=== PATIENT | male | born 1995 | race Caucasian/White ===

== ENCOUNTER 2023-09-25 01:38 | Emergency (ER) | payer SELFPAY ==
[2023-09-25] VITALS (7 sets, daily range): BP systolic 133–161; BP diastolic 84–91; PULSE 93–108; RESP 16–18; TEMP 36.1; O2SAT 96–100; BMI 51.7
[2023-09-25] MEDS: ONDANSETRON 4 MG/2 ML INJ IV (02:46)
[2023-09-25] MEDS: KETOROLAC 30 MG/ML VIAL 15 MG IV (02:46)
[2023-09-25 02:57] LABS: Add Manual Diff / Slide Review NO; Basophils Absolute Auto 0 /uL (0-100); Basophils Percent Auto 0.3 % (0-2); Eosinophils Absolute Auto 100 /uL (0-450); Eosinophils Percent Auto 1.1 % (2-4); Hematocrit 46.7 % (41-53); Hemoglobin 15.9 g/dL (13.5-17.5); Lymphocytes Absolute Auto 1800 /uL (1100-4500); Lymphocytes Percent Auto 14.2 % (25-40); Mean Corpuscular HGB Conc 34.1 % (30-36); Mean Corpuscular Hemoglobin 28.4 PG (26-34); Mean Corpuscular Volume 83.1 fL (80-100); Monocytes Absolute Auto 800 /uL (0-900); Monocytes Percent Auto 6.5 % (3-14); Neutrophils Absolute Auto 10100 /uL (1500-7000); Neutrophils Percent Auto 77.9 % (50-75); Platelet Count 284 X10^3/uL (150-400); Red Blood Cell Count 5.61 X10^6/uL (4.5-5.9); Red Cell Distribution Width 14.1 % (11.6-14.8)
[2023-09-25 03:06] LABS: Alanine Aminotransferase 79 IU/L (<50); Albumin 4.8 g/dL (3.5-5.0); Albumin Globulin Ratio 1.3 (1.0-2.8); Alkaline Phosphatase 63 U/L (38-126); Aspartate Aminotransferase 47 IU/L (17-59); BUN Creatinine Ratio 10.8 (6-22); Bilirubin Total 0.6 mg/dL (0.2-1.3); Blood Urea Nitrogen 13 mg/dL (9-20); Calcium 9.5 mg/dL (8.4-10.2); Carbon Dioxide 25 mmol/L (22-32); Chloride 106 mmol/L (98-107); Estimated Glomerular Filt Rate > 60 mL/min (>60); Globulin 3.6 g/dL (1.7-4.1); Glucose 120 mg/dL (70-100); HEMOLYSIS 18 (0-50); Lipase 153 U/L (23-300); Potassium 4.2 mmol/L (3.4-5.1); Sodium 138 mmol/L (137-145); Total Protein 8.4 g/dL (6.3-8.2)
[2023-09-25 03:43] LABS: Appearance Urine UA CLOUDY; Bilirubin Urine UA 1+ (NEGATIVE); Glucose Urine UA NEGATIVE (Negative); Ketones Urine UA TRACE (NEGATIVE); Leukocyte Esterase Urine UA NEGATIVE (NEGATIVE); Nitrite Urine UA NEGATIVE (Negative); Occult Blood Urine UA 3+ (Negative); Protein Urine UA 2+ (Negative); Specific Gravity Urine UA >=1.030 (1.000-1.035)
[2023-09-25 03:44] LABS: Color Urine UA Dark Yellow
[2023-09-25 03:46] LABS: Ictotest Urine Negative (Negative); Urine Volume 10mL (spun)
[2023-09-25 03:47] LABS: Bacteria Urine Moderate (10-30); RBC Urine >100/HPF (0-5/HPF); WBC Urine 1-5/HPF (0-5/HPF)
[2023-09-25 03:48] LABS: Mucus Urine 3+ (Negative); Squamous Epithelial Cell Urine 1-5 /HPF (0-5/HPF)
[2023-09-25 03:50] LABS: Culture Indicated Urine Cult Not Indicated
--- NOTE | 2023-09-25 03:55 | DI.CT.S_ITS ---
PROCEDURE: CT KIDNEY URETER BLADDER (KUB) INDICATIONS: possible kidney stone TECHNIQUE: Axial sections were acquired from the lung bases to the pubic symphysis. Coronal and sagittal reformats were performed. For radiation dose reduction, the following was used: automated exposure control, adjustment of mA and/or kV according to patient size. COMPARISON: None. FINDINGS: Image quality: Diagnostic. Lower Chest: No significant findings. URINARY: Right Kidney: No stones or hydronephrosis. Right Ureter: No hydroureter. Left Kidney/ureter: There is a 3 mm obstructing proximal left ureteral stone with associated upstream hydroureteronephrosis. Associated perinephric stranding. Remainder of the left ureter is normal in course and caliber. Bladder: Normal wall thickness. No stones. ABDOMEN: Liver: No contour-deforming solid mass. Hepatic steatosis. There is a 14 mm hyperdense focus within the anterior right hepatic lobe (33/series 2) which may represent focal fatty sparing versus possible indeterminate hepatic lesion. Gallbladder: No radiopaque gallstones or wall thickening. Biliary ducts: No biliary dilation. Pancreas: No ductal dilation. Spleen: Size is within normal limits. Adrenal Glands: No adrenal nodules. Stomach and Bowel: Normal colonic caliber, without significant wall thickening. Normal appendix. Peritoneum: No abnormal intraperitoneal fluid. No free air. Ventral Wall: There is a fat-containing umbilical hernia without acute inflammation. Abdominal Nodes: No enlarged retroperitoneal or mesenteric lymph nodes. Vessels: Aorta and inferior vena cava are normal in size. PELVIS: Pelvic Organs: Unremarkable. Pelvic Nodes: Unremarkable. Miscellaneous: No inguinal hernias are seen. Bones: Visualized osseous structures appear intact without acute fracture or focal destructive lesion. No acute compression fractures of the imaged spine. IMPRESSION: 3 mm obstructing proximal left ureteral stone with mild upstream hydroureteronephrosis and perinephric stranding. Recommend correlation for possible concurrent infectious uropathy. Moderate hepatic steatosis with a 14 mm density in the right hepatic lobe which may represent focal fatty sparing versus possible indeterminate hepatic lesion. Consider further characterization with multiphasic CT or MRI of the abdomen using liver mass protocol. Normal appendix. No significant discrepancy with the mold shifter radiology preliminary report. Dictated by: Laurent Gibson M.D. on 09/25/2023 at 7:10 Approved by: Laurent Gibson M.D. on 09/25/2023 at 7:20
--- NOTE | 2023-09-25 04:22 | ED_ITS ---
HPI - Abdominal Pain General Chief Complaint: Abdominal Pain Stated Complaint: abd pain, back pain Time Seen by Provider: 09/25/23 04:22 Source: patient Mode of arrival: Ambulatory History of Present Illness HPI narrative: 28-year-old male with history of left flank pain sudden onset 10:00 p.m., unrelenting, with associated nausea and emesis x3 episodes, nonbloody, no loose stool, injury or trauma neck activities. No anterior abdominal discomfort, no groin pain or testicular pain. No history of known kidney stones. No fevers or chills. No shortness of breath or chest pain. No rashes or skin changes. No frequency of urination, no painful urination, no blood or dark appearance to urination. No trauma injury new activities recalled. No fevers or chills. No weakness. MD complaint: flank pain Related Data Home Medications Medication Instructions Recorded Confirmed ACETAMINOPHEN (#TYLENOL) ##0 12/13/11 ibuprofen 600 mg tablet ##0 12/13/11 Previous Rx's Medication Instructions Recorded cefdinir 300 mg capsule 300 mg PO BID 10 days #20 caps 09/25/23 naproxen 500 mg tablet 500 mg PO BID 7 days #14 tabs 09/25/23 tamsulosin 0.4 mg capsule 0.8 mg (2 x 0.4 mg) PO DAILY 7 09/25/23 days #14 caps Allergies Allergy/AdvReac Type Severity Reaction Status Date / Time No Known Drug Allergies Allergy Verified 09/25/23 03:38 Exam Initial Vital Signs Initial Vital Signs: Vital Signs Temperature 97 F L 09/25/23 02:20 Pulse Rate 108 H 09/25/23 02:20 Respiratory Rate 18 09/25/23 02:20 Blood Pressure 161/84 H 09/25/23 02:20 Pulse Oximetry 100 09/25/23 02:20 Oxygen Delivery Method Room Air 09/25/23 02:20 Course Orders Ordered: Discontinued Medications Ceftriaxone Sodium 1,000 mg/ (Sodium Chloride) 100 mls @ 200 mls/hr IV NOW ONE Stop: 09/25/23 04:58 Last Infusion: 09/25/23 05:48 Dose: Infused Documented By: Admin: 09/25/23 05:12 Dose: 200 mls/hr Documented By: JOZEF Ketorolac Tromethamine (Ketorolac 30 Mg/Ml Vial) 15 mg IV NOW ONE Stop: 09/25/23 02:25 Last Admin: 09/25/23 02:46 Dose: 15 mg Documented By: KOURTNEY Ondansetron HCl (Ondansetron 4 Mg/2 Ml Inj) 4 mg IV NOW ONE Stop: 09/25/23 02:25 Last Admin: 09/25/23 02:46 Dose: 4 mg Documented By: KOURTNEY Tamsulosin HCl (Tamsulosin 0.4 Mg Capsule) 0.4 mg PO NOW ONE Stop: 09/25/23 04:48 Last Admin: 09/25/23 05:11 Dose: 0.4 mg Documented By: JOZEF Vital Signs Vital signs: Vital Signs - 8 hr 09/25/23 02:20 09/25/23 04:02 09/25/23 04:34 Temperature 97 F L Pulse Rate 108 H 95 H Respiratory Rate 18 Blood Pressure 161/84 H 138/88 Pulse Oximetry 100 96 Oxygen Delivery Method Room Air 09/25/23 05:00 09/25/23 05:30 Temperature Pulse Rate 94 H 98 H Respiratory Rate Blood Pressure Pulse Oximetry 96 100 Oxygen Delivery Method MDM - Abdominal Pain Lab Data Attestation: I reviewed the patient's lab results. 09/25/23 02:40 09/25/23 02:40 Labs: Lab Results 09/25/23 09/25/23 Range/Units 02:40 03:24 WBC 13.0 H (4.5-11.0) X10^3/uL RBC 5.61 (4.5-5.9) X10^6/uL Hgb 15.9 (13.5-17.5) g/dL Hct 46.7 (41-53) % MCV 83.1 (80-100) fL MCH 28.4 (26-34) PG MCHC 34.1 (30-36) % RDW 14.1 (11.6-14.8) % Plt Count 284 (150-400) X10^3/uL Neut % (Auto) 77.9 H (50-75) % Lymph % (Auto) 14.2 L (25-40) % [place] % (Auto) 6.5 (3-14) % Eos % (Auto) 1.1 L (2-4) % Baso % (Auto) 0.3 (0-2) % Neut # (Auto) 26626 H (2236-9238) /uL Lymph # (Auto) 1800 (4883-3301) /uL [place] # (Auto) 800 (0-900) /uL Eos # (Auto) 100 (0-450) /uL Baso # (Auto) 0 (0-100) /uL Sodium 138 (137-145) mmol/L Potassium 4.2 (3.4-5.1) mmol/L Chloride 106 (98-107) mmol/L Carbon Dioxide 25 (22-32) mmol/L BUN 13 (9-20) mg/dL Creatinine 1.20 (0.66-1.25) mg/dL Estimated GFR > 60 (>60) mL/min BUN/Creatinine Ratio 10.8 (6-22) Glucose 120 H (70-100) mg/dL Calcium 9.5 (8.4-10.2) mg/dL Total Bilirubin 0.6 (0.2-1.3) mg/dL AST 47 (17-59) IU/L ALT 79 H (<50) IU/L Alkaline Phosphatase 63 (38-126) U/L Total Protein 8.4 H (6.3-8.2) g/dL Albumin 4.8 (3.5-5.0) g/dL Globulin 3.6 (1.7-4.1) g/dL Albumin/Globulin Ratio 1.3 (1.0-2.8) Lipase 153 (23-300) U/L Urine Color Dark yellow Urine Appearance Cloudy Urine pH 6.0 (4.5-8.0) Ur Specific [place] >=1.030 H (1.000-1.035) Urine Protein 2+ H (Negative) Urine Glucose (UA) Negative (Negative) g/dL Urine Ketones Trace H (NEGATIVE) Urine Occult Blood 3+ H (Negative) Urine Nitrate Negative (Negative) Urine Bilirubin 1+ H (NEGATIVE) Ur Bilirubin Confirm Negative (Negative) Urine Urobilinogen 1.0 (0.2) E.U./dL Ur Leukocyte Esterase Negative (NEGATIVE) Urine RBC >100/hpf H (0-5/HPF) Urine WBC 1-5/hpf (0-5/HPF) Ur Squamous Epith Cells 1-5 /hpf (0-5/HPF) Urine Bacteria Moderate (10-30) H (None) Urine Mucus 3+ H (Negative) Ur Culture Indicated? Cult not indicated Vol Urine Centrifuged 10ml (spun) Point of care testing: Urine Dip Bedside Urine Glucose Negative Bedside Urine Bilirubin + 1 Bedside Urine Ketone +/- 5 Urine Specific [place] 1.030 Bedside Urine Occult Blood +++ Bedside Urine pH 6.0 Bedside Urine Protein + 30 Bedside Urine Urobilinogen - Negative Bedside Urine Nitrite - Negative Bedside Urine Leukocytes - Negative Esterase MDM Narrative Medical decision making narrative: 28-year-old male with sudden onset atraumatic left flank pain 10:00 p.m. last night, nonbloody emesis, no history of known kidney stones, afebrile, hematuria noted on UA, also moderate bacteria, IV ceftriaxone, CT abdomen and pelvis shows presence small 2 mm proximal ureteral stone. Hemodynamically stable. Small stone likely will pass well, but seems to be in context of infection. We will discuss case with Urology CT abdomen pelvis without IV contrast. Impressions: ?2 mm left upper ureteral stone associated with upstream mild hydronephrosis and perinephric fat stranding. Severe hepatic stenosis. See radiology report, Dr Khalil Case discussed with Urology Dr. Bell, patient afebrile, possible urine infection associated with 2 mm stone, can cover with antibiotics, agrees with Rocephin and cefdinir regimen. He can see patient early this week Discharge patient with prescription for cefdinir antibiotic, tamsulosin for expulsive therapy although stone is fairly small, Urology preference. Urine strainer for discharge. Follow up with Urology, to be contacted for appointment time. Return precautions to the emergency department discussed. Improved, stable Discharge Plan Departure Patient Disposition: Home Clinical Impression: Calculus of left ureter Urinary tract infection Qualifiers: Hematuria presence: with hematuria Instructions: DI for Kidney Stones, DI for Urinary Tract Infection (UTI) Activity Restrictions/Additional Instructions: Acute onset left flank pain without trauma known, no fever on triage. CT imaging showed 2 mm small kidney stone in the proximal upper part of the left ureter between the kidney in the bladder, that is the likely cause of her discomfort. Urinalysis did show little bit of blood as you might expect with kidney stone passage, but there was presence of bacteria as well, possible infection, IV ceftriaxone antibiotics initiated. Case discussed with Urology Dr. Bell who felt that you can be treated as an outpatient with oral antibiotics for now. You will be contacted regarding your close follow up appointment time. His contact information provided below. If you have not heard anything in the next 2-3 days in the office give them a call. If you are feeling worse or have any concerns prior to that appointment then consider returning to the emergency department. Drink plenty of fluids. Take Tylenol as needed for pain control. Home pack tramadol to use for pain control to use if needed Prescriptions: New tamsulosin 0.4 mg capsule 0.8 mg PO DAILY 7 Days Qty: 14 0RF naproxen 500 mg tablet 500 mg PO BID 7 Days Qty: 14 0RF cefdinir 300 mg capsule 300 mg PO BID 10 Days Qty: 20 0RF No Action ACETAMINOPHEN (#TYLENOL) Qty: 0 ibuprofen 600 MG tablet Qty: 0 Referrals: Castillo Bell MD [Physician] - Stand Alone Forms: Patient Portal/API
[2023-09-25] MEDS: TAMSULOSIN 0.4 MG CAPSULE PO (05:11)
[2023-09-25] MEDS: cefTRIAXone 1,000 MG in SODIUM CHLORIDE 0.9% 100 ML 200 MG IV (05:12)
== END 2023-09-25 06:25 | disposition home or self-care (01) ==
PROVIDERS: Emergency Provider Emergency Medicine
DX: N20.1 Calculus of ureter (principal); N39.0 Urinary tract infection, site not specified; R31.9 Hematuria, unspecified; R11.2 Nausea with vomiting, unspecified
CPT/HCPCS: 36415; 74176; 80053; 81001; 81003; 83690; 85025; 96365; 96375; 99284; J0696; J1885; J2405

== ENCOUNTER → 2024-07-16 07:59 | Outpatient (CLI) | payer OTHER, SELFPAY ==
[2024-07-16 08:54] LABS: COVID-19 CEPHEID 4-PLEX PCR Negative (Negative); Influenza A - CEPHEID Flu A NEGATIVE (NEGATIVE); Influenza B - CEPHEID Flu B NEGATIVE (NEGATIVE); Respiratory Syncytial Virus Negative (Negative)
== END ==
PROVIDERS: Visit Provider Nurse Practitioner Family
DX: J02.9 Acute pharyngitis, unspecified (principal); R05.1 Acute cough
CPT/HCPCS: 0241U; 87070

== ENCOUNTER → 2024-07-16 08:20 | Outpatient (CLI) | payer OTHER, SELFPAY ==
--- NOTE | 2024-07-16 08:21 | DI.RAD.S_ITS ---
PROCEDURE: XR CHEST 2V INDICATIONS: Cough TECHNIQUE: 2 views of the chest were acquired. COMPARISON: None. FINDINGS: Surgical changes and devices: None. Lungs and pleura: Lungs are clear. No pleural effusions or pneumothorax. Mediastinum: Mediastinal contours are normal. Heart size is normal. Bones and chest wall: No suspicious bony abnormalities. Soft tissues appear unremarkable. IMPRESSION: No acute cardiopulmonary abnormality is seen. Dictated by: Astrid Benavides MD, PhD on 07/16/2024 at 9:38 Approved by: Astrid Benavides MD, PhD on 07/16/2024 at 9:38
== END ==
PROVIDERS: Referring Provider Nurse Practitioner Family; Visit Provider Nurse Practitioner Family
DX: J02.9 Acute pharyngitis, unspecified (principal); R05.1 Acute cough
CPT/HCPCS: 0241U; 71046; 87070